=== PATIENT | female | born 1950 | race Caucasian/White ===

== ENCOUNTER → 2021-08-01 | Outpatient (CLI) | payer MEDICARE ==
[2021-08-01 15:29] LABS: BASO # 0.1 10^3/uL (0.0-0.2); BASO % 0.9 % (0.0-1.0); EOS # 0.4 10^3/uL (0.0-0.5); EOS % 4.8 % (0.0-3.0); HEMATOCRIT 39.9 % (36.0-47.0); HEMOGLOBIN 13.5 g/dl (12.0-15.5); LYMPH # 1.9 10^3/uL (1.5-5.0); LYMPH % 22.5 % (24.0-44.0); MEAN CORPUSCULAR HEMOGLOBIN 30.4 pg (27.0-33.0); MEAN CORPUSCULAR HGB CONC 33.8 g/dl (32.0-36.5); MEAN CORPUSCULAR VOLUME 89.9 fl (80.0-96.0); MONO # 0.7 10^3/uL (0.0-0.8); MONO % 7.8 % (2.0-8.0); NEUTROPHILS # 5.4 10^3/uL (1.5-8.5); NEUTROPHILS % 63.1 % (36.0-66.0); PLATELET COUNT, AUTOMATED 202 10^3/uL (150-450); RED BLOOD COUNT 4.44 10^6/uL (4.00-5.40); WHITE BLOOD COUNT 8.6 10^3/uL (4.0-10.0)
[2021-08-01 15:31] LABS: APPEARANCE, URINE HAZY (CLEAR); BACTERIA, URINE AUTO 3+ (NEGATIVE); BILIRUBIN, URINE AUTO NEGATIVE (NEGATIVE); BLOOD, URINE BLOOD 1+ (NEGATIVE); COLOR, URINE YELLOW (YELLOW); GLUCOSE, URINE (UA) AUTO NEGATIVE (NEGATIVE); KETONE, URINE AUTO NEGATIVE (NEGATIVE); LEUKOCYTE ESTERASE, URINE AUTO 2+ (NEGATIVE); MUCUS, URINE SMALL (NEGATIVE); NITRITE, URINE AUTO POSITIVE (NEGATIVE); PROTEIN, URINE AUTO NEGATIVE (NEGATIVE); RBC, URINE AUTO 3 /HPF (0-3); RENAL EPITHELIAL CELLS 1 /HPF; SPECIFIC GRAVITY URINE AUTO 1.013 (1.002-1.035); SQUAMOUS EPITHELIAL CELL UR AU 2 /HPF (0-6); TRANSITIONAL EPITHELIAL AUTO <1 /HPF; UROBILINOGEN, URINE AUTO 0.2 mg/dL (0.0-2.0); WBC, URINE AUTO 9 /HPF (0-3)
[2021-08-01 15:42] LABS: INR 0.98; PROTHROMBIN TIME 13.4 SECONDS (12.7-14.5)
[2021-08-01 15:43] LABS: PARTIAL THROMBOPLASTIN TIME 32.3 SECONDS (25.9-37.0)
== END ==
LOC: M LAB 14:38
PROVIDERS: ATTEND Orthopaedic Surgery
DX: Z01.818 Encounter for other preprocedural examination (principal); M16.12 Unilateral primary osteoarthritis, left hip; D63.8 Anemia in other chronic diseases classified elsewhere

== ENCOUNTER → 2021-12-08 | Outpatient (REF) | payer MEDICARE ==
[2021-12-08 19:23] LABS: APPEARANCE, URINE HAZY (CLEAR); BACTERIA, URINE AUTO 1+ (NEGATIVE); BILIRUBIN, URINE AUTO NEGATIVE (NEGATIVE); BLOOD, URINE BLOOD 1+ (NEGATIVE); COLOR, URINE YELLOW (YELLOW); GLUCOSE, URINE (UA) AUTO NEGATIVE (NEGATIVE); KETONE, URINE AUTO NEGATIVE (NEGATIVE); LEUKOCYTE ESTERASE, URINE AUTO 1+ (NEGATIVE); MUCUS, URINE SMALL (NEGATIVE); NITRITE, URINE AUTO POSITIVE (NEGATIVE); PROTEIN, URINE AUTO NEGATIVE (NEGATIVE); RBC, URINE AUTO 0 /HPF (0-3); SPECIFIC GRAVITY URINE AUTO 1.012 (1.002-1.035); SQUAMOUS EPITHELIAL CELL UR AU 1 /HPF (0-6); UROBILINOGEN, URINE AUTO 0.2 mg/dL (0.0-2.0); WBC, URINE AUTO 3 /HPF (0-3)
== END ==
LOC: M LAB REF 18:46
PROVIDERS: ATTEND Orthopaedic Surgery
DX: Z01.818 Encounter for other preprocedural examination (principal); N39.0 Urinary tract infection, site not specified

== ENCOUNTER → 2023-12-10 | Outpatient (CLI) | payer MEDICARE ==
[2023-12-19 17:06] LABS: ALPHA 2-MACROGLOBULINS,QN 280 mg/dL (106-279); ALT (SGPT) P5P 35 U/L (6-29); APOLIPOPROTEIN A-1 143 mg/dL (101-198); BILIRUBIN, TOTAL 0.5 mg/dL (0.2-1.2); FIBROSIS SCORE 0.48; FIBROSIS STAGE MODERATE FIBROSIS (F0); GGT 55 U/L (3-65); HAPTOGLOBIN 154 mg/dL (43-212); NECROINFLAM ACT GRADE NO ACTIVITY (A0); NECROINFLAM ACT SCORE 0.23
== END ==
LOC: M LAB 10:24
PROVIDERS: ATTEND Internal Medicine
DX: K21.9 Gastro-esophageal reflux disease without esophagitis (principal); K58.9 Irritable bowel syndrome, unspecified; K76.0 Fatty (change of) liver, not elsewhere classified

== ENCOUNTER → 2024-04-04 | Outpatient (CLI) | payer MEDICARE | LOC: M RAD 09:13 | PROVIDERS: ATTEND Internal Medicine | DX: K76.0 Fatty (change of) liver, not elsewhere classified (principal); K21.9 Gastro-esophageal reflux disease without esophagitis; K58.9 Irritable bowel syndrome, unspecified; R14.3 Flatulence; R16.0 Hepatomegaly, not elsewhere classified; K80.20 Calculus of gallbladder without cholecystitis without obstruction; N28.1 Cyst of kidney, acquired; D17.5 Benign lipomatous neoplasm of intra-abdominal organs ==

== ENCOUNTER 2024-05-31 10:41 | Emergency (ER) | payer MEDICARE ==
[~2024-05-31] VITALS: Ht 166.4 cm; Wt 80.5 kg
[2024-05-31] MEDS: ACETAMINOPHEN 500 MG TAB PO ONE (11:29)
[2024-05-31] MEDS: IBUPROFEN 800 MG TAB PO ONE ×2 (12:41→18:46)
[2024-05-31 18:36] VITALS: BP 154/73; TEMP 97.2; O2SAT 96
[2024-05-31] MEDS ORDERED: IBUP80TA PO (18:42)
== END 2024-05-31 18:50 | disposition home or self-care (01) ==
LOC: M ED 10:41
DX: S52.532A Colles' fracture of left radius, initial encounter for closed fracture (principal); W01.0XXA Fall on same level from slipping, tripping and stumbling without subsequent striking against object, initial encounter; Y92.009 Unspecified place in unspecified non-institutional (private) residence as the place of occurrence of the external cause; Y93.9 Activity, unspecified; Y99.9 Unspecified external cause status; I10 Essential (primary) hypertension; E11.9 Type 2 diabetes mellitus without complications; Z88.0 Allergy status to penicillin; Z88.5 Allergy status to narcotic agent